=== PATIENT | female | born 2000 | race Caucasian/White ===

== ENCOUNTER → 2024-07-10 | Outpatient (CLI) | payer OTHER, SELFPAY ==
--- NOTE | 2024-07-10 08:29 | RAD_ITS ---
PROCEDURE: SALPINGOGRAM 07/10/2024 REASON FOR EXAM: INFERTILITY TECHNIQUE: Hysterosalpingogram. COMPARISON: None. RAD/Salpingogram IMPRESSION: Normal filling of normal-appearing uterine cavity is seen, with easy spillage t hrough a normal-appearing right fallopian tube noted. The left fallopian tube is seen in a more limited fashion, probable normal ata claus (at least in the visualized portions), but without definite free spillage seen. Reading Location: [place] [id number]
== END | disposition home or self-care (01) ==
PROVIDERS: Referring Provider Obstetrics & Gynecology; Visit Provider Obstetrics & Gynecology
DX: Z31.9 Encounter for procreative management, unspecified (principal)
CPT/HCPCS: 58340; 74740; Q9967